=== PATIENT | female | born 1990 | race Caucasian/White ===

== ENCOUNTER 2023-05-01 08:35 | Outpatient (CLI) | payer OTHER | END 2023-05-01 08:45 | disposition home or self-care (01) | LOC: PPH VACUNA 08:35 | PROVIDERS: ATTEND Emergency Medicine Pediatric Emergency Medicine | DX: Z23 Encounter for immunization (principal) ==

== ENCOUNTER → 2023-05-08 | Emergency (ER) | payer OTHER ==
[~2023-05-08] VITALS: Ht 167.6 cm; Wt 104.3 kg
== END | disposition home or self-care (01) ==
LOC: ER 14:19
DX: S49.81XA Other specified injuries of right shoulder and upper arm, initial encounter (principal); W46.0XXA Contact with hypodermic needle, initial encounter; Y93.89 Activity, other specified; Y92.234 Operating room of hospital as the place of occurrence of the external cause; Y99.8 Other external cause status; R53.81 Other malaise

== ENCOUNTER 2023-09-04 10:32 | Emergency (ER) | payer OTHER ==
[~2023-09-04] VITALS: Ht 167.6 cm; Wt 110.7 kg
[2023-09-04 13:20] LABS: HEMATOCRIT 34.7 % (36.0-45.00); MEAN CELL VOLUME 83.7 fL (80.00-100.00); MEAN CORPUSCULAR HEMOGLOBIN 28.9 pg (27.00-32.0); MEAN CORPUSCULAR HGB CONC 34.6 g/dl (32.0-36.0); PLATELET COUNT 319 K/uL (150-450); RED BLOOD COUNT 4.14 M/uL (4.00-6.00); RED CELL DISTRIBUTION WIDTH 13.2 % (11.5-14.5)
[2023-09-04 13:31] LABS: URINE APPEARANCE Clear; URINE BILIRRUBIN Negative (NEGATIVE); URINE BLOOD Large; URINE COLOR Yellow; URINE GLUCOSE Negative (NEGATIVE); URINE LEUKOCYTE Negative; URINE NITRATE Negative; URINE PROTEIN Negative (NEGATIVE); URINE UROBILINOGEN 0.2 E.U./dl
[2023-09-04 13:32] LABS: URINE BACTERIA 128.4 uL (0.0-1933); URINE EPITHELIAL CELLS 6.6 uL (0.0-38.8); URINE RBC 643.6 uL (0.0-20.8); URINE WBC 9.5 uL (0.0-23.2)
[2023-09-04 13:46] LABS: CREATININE SERUM 0.57 mg/dL (0.55-1.02); GFR 122.92; POTASSIUM 4.06 mEq/L (3.5-5.1)
== END 2023-09-04 14:30 | disposition home or self-care (01) ==
LOC: ER
PROVIDERS: General Practice
DX: R11.10 Vomiting, unspecified (principal)

== ENCOUNTER 2024-02-09 07:32 | Outpatient (CLI) | payer OTHER | END 2024-02-09 07:42 | disposition home or self-care (01) | LOC: PPH VACUNA 07:32 | PROVIDERS: ATTEND Emergency Medicine Pediatric Emergency Medicine | DX: Z23 Encounter for immunization (principal) ==